=== PATIENT | male | born 1960 | race Caucasian/White ===

== ENCOUNTER 2024-09-19 10:15 | Outpatient (CLI) | payer BC ==
[2024-09-19 11:29] LABS: #Basophils 0.04 10x3/uL (0.0-0.2); #Eosinophils 0.06 10x3/uL (0.0-0.5); #Monocytes 0.61 10x3/uL (0.0-1.1); #Neutrophils 4.65 10x3/uL (1.5-8.4); %Basophils 0.6 % (0.0-2.0); %Eosinophils 0.9 % (0.0-6.0); %Lymphocytes 20.6 % (18.0-47.0); %Neutrophils 68.6 % (40.0-75.0); Hematocrit 41.1 % (38.8-50.0); Hemoglobin 14.5 g/dL (13.5-17.5); Mean Corpuscular HGB CONC 35.3 g/dL (32.0-36.0); Mean Corpuscular Hemoglobin 30.4 pg (27.0-33.0); Mean Corpuscular Volume 86.2 fL (81.2-95.1); Mean Platelet Volume 9.3 fL (7.4-10.4); Platelet Count 227 10x3/uL (150-450); RBC Distribution Width 12.1 % (11.5-14.5); Red Blood Cell (RBC) Count 4.77 10x6/uL (4.32-5.72); White Blood Cell (WBC) Count 6.8 10x3/uL (3.5-10.5)
[2024-09-19 11:55] LABS: Anion Gap 13 mmol/L (10-20); BUN (Urea Nitrogen) 16 mg/dL (8.4-25.7); Calc. Creatinine Clearance 0 mL/min (70-130); Calcium 9.2 mg/dL (7.8-10.44); Carbon Dioxide 23 mmol/L (23-31); Chloride 107 mmol/L (98-107); Estimated GFR 76; Glucose 90 mg/dL (80-115); Potassium 4.2 mmol/L (3.5-5.1); Sodium 139 mmol/L (136-145)
== END 2024-09-19 10:16 | disposition home or self-care (01) ==
LOC: CSHLAB 10:15
PROVIDERS: ATTEND Surgery
DX: Z01.812 Encounter for preprocedural laboratory examination (principal); D17.1 Benign lipomatous neoplasm of skin and subcutaneous tissue of trunk
CPT/HCPCS: 80048; 85025

== ENCOUNTER 2024-09-21 07:28 | Day surgery (SDC) | payer BC ==
[2024-09-19 10:43] VITALS: BMI 25.8
[2024-09-21] MEDS ORDERED: CEFAZOLIN 2 GM VIAL ONE (09:06)
[2024-09-21] MEDS ORDERED: Bupivacaine/Epinephrine 0.25% 30 ML VIAL ONE (09:06)
[2024-09-21] MEDS ORDERED: Lidocaine 2% PF 5 ML VIAL ONE (09:47)
[2024-09-21] MEDS ORDERED: PROPOFOL 20 ML ONE (09:47)
[2024-09-21] MEDS ORDERED: fentaNYL 50 mcg/mL 1 mL Vial ONE (09:48)
[2024-09-21] MEDS ORDERED: Dexamethasone 4 mg/ml Vial ONE (10:06)
[2024-09-21] MEDS ORDERED: Ondansetron PF 4 MG/2 ML Vial ONE (10:06)
[2024-09-21] MEDS ORDERED: ePHEDrine Sulfate 50 MG/10 ML VIAL ONE (10:14)
[2024-09-21] MEDS ORDERED: Ketorolac Tromethamine 30 MG (1 mL) VIAL ONE (10:22)
== END 2024-09-21 11:46 | disposition home or self-care (01) ==
LOC: CSHSDC 07:28
PROVIDERS: ATTEND Surgery
PROC: 0JB70ZZ Excision of Back Subcutaneous Tissue and Fascia, Open Approach (ICD-10-PCS; principal; 2024-09-21)
DX: D17.1 Benign lipomatous neoplasm of skin and subcutaneous tissue of trunk (principal); Z90.49 Acquired absence of other specified parts of digestive tract; Z90.89 Acquired absence of other organs; Z98.52 Vasectomy status; Z88.8 Allergy status to other drugs, medicaments and biological substances
CPT/HCPCS: 88304; A6258; J1100; J1885; J2405; J2704; J3010